=== PATIENT | female | born 1975 ===

== ENCOUNTER 2019-09-07 09:08 | Outpatient (CLI) | payer OTHER ==
[~2019-09-07 09:08] MED LIST: ORPH100T PO; PRENATAL1 TAB
== END 2019-09-07 09:23 | disposition home or self-care (01) ==
LOC: SONOGRAMA 09:08 → MAMO-SONO 09:15 → SONOGRAMA 09:23
PROVIDERS: ATTEND Internal Medicine Geriatric Medicine
DX: E04.1 Nontoxic single thyroid nodule (principal); E06.3 Autoimmune thyroiditis